=== PATIENT | female | born 1955 | race Caucasian/White ===

== ENCOUNTER 2023-08-11 11:21 | Emergency (ER) | payer MEDICARE, BC ==
[2023-08-11 11:36] VITALS: BP 149/87; O2SAT 100
--- NOTE | 2023-08-11 11:50 | ED Physician Documentation ---
History of Present Illness - Stated complaint Stated Complaint: COUGH,ACHEY - Chief complaint Chief Complaint: Resp - History obtained from History obtained from: Patient - Additonal information Additional information: She has been sick for 4 days with a productive cough and bodyaches. She went to the clinic yesterday and had negative viral testing. She is been taking leftover doxycycline from some other illness for the last 3 days but only once a day. She received a prescription for Tessalon and codeine yesterday, but she does not like to take medicines. Review of Systems Constitutional: reports: Chills, Myalgias. denies: Fever PD PAST MEDICAL HISTORY - Past Medical History Past Medical History: No Cardiovascular: MO - Past Surgical History Past Surgical History: No - Present Medications Home Medications: Ambulatory Orders Medication Instructions Recorded Confirmed Albuterol Sulf [Ventolin Hfa 1 - 2 puffs INH Q4HR PRN #1 each 08/11/23 Inhaler] Benzonatate 200 mg PO TID 08/11/23 08/11/23 Codeine Phosphate/Guaifenesin 10 ml PO DAILY 08/11/23 08/11/23 [Codeine-Guaifen 10-100 mg/5 ml] - Allergies Allergies/Adverse Reactions: Allergies Allergy/AdvReac Type Severity Reaction Status Date / Time No Known Drug Allergies Allergy Verified 08/11/23 11:35 - Social History Does the pt smoke?: Yes Smoking Status: Former smoker Does the pt drink ETOH?: No Does the pt have substance abuse?: No PD ED PE NORMAL - Vitals Vital signs reviewed: Yes - General General: Alert and oriented X 3, No acute distress - HEENT HEENT: Pharynx benign - Cardiac Cardiac: RRR, No murmur - Respiratory Respiratory: No respiratory distress, Other (Rhonchi and wheezing throughout, nonlabored) - Extremities Extremities: No edema, No calf tenderness / cord - Neuro Neuro: Alert and oriented X 3, Normal speech Results - Vitals Vitals: Vital Signs - 24 hr 08/11/23 11:28 Temperature 36.7 C Heart Rate 100 Respiratory 18 Rate Blood Pressure 149/87 H O2 Saturation 100 Oxygen O2 Source Room air - Labs Labs: Laboratory Tests 08/11/23 11:41 Nasal Adenovirus (PCR) NOT DETECTED Nasal B. parapertussis DNA (PCR) NOT DETECTED Nasal Coronavir 229E PCR NOT DETECTED Nasal Coronavir HKU1 PCR NOT DETECTED Nasal Coronavir NL63 PCR NOT DETECTED Nasal Coronavir OC43 PCR NOT DETECTED Nasal Enterovir/Rhinovir PCR NOT DETECTED Nasal Influenza B PCR NOT DETECTED Nasal Influenza A PCR NOT DETECTED Nasal Parainfluen 1 PCR NOT DETECTED Nasal Parainfluen 2 PCR NOT DETECTED Nasal Parainfluen 3 PCR NOT DETECTED Nasal Parainfluen 4 PCR NOT DETECTED Nasal RSV (PCR) NOT DETECTED Nasal B.pertussis DNA PCR NOT DETECTED Nasal C.pneumoniae (PCR) NOT DETECTED Eb Human Metapneumo PCR DETECTED A Nasal M.pneumoniae (PCR) NOT DETECTED Nasal SARS-CoV-2 (PCR) NOT DETECTED - Rads (name of study) 2 view chest x-ray showing perihilar peribronchial thickening Relevant Findings:: Final report received, EMP independent interpretation of test PD Medical Decision Making - ED course ED course: She presents with overall what sounds like a viral syndrome. She appears well. She has prescriptions for codeine and Tessalon but has not been taking them. Her chest x-ray shows no pneumonia. I encouraged her to take the codeine and Tessalon we will add albuterol. I discussed with her that I see no role for antibiotics for this likely viral syndrome. [employer] respiratory panel resulted after discharge, positive for human metapneumovirus. Departure - Departure Disposition: 01 Home, Self Care Clinical Impression: Acute viral bronchiolitis Condition: Good Record reviewed to determine appropriate education?: Yes Instructions: ED Viral Syndrome Prescriptions: Albuterol Sulf [Ventolin Hfa Inhaler] 1 - 2 puffs INH Q4HR PRN #1 each PRN Reason: Shortness Of Air/Wheezing Comments: Your chest x-ray shows no sign of pneumonia. As discussed I see no role for antibiotics for this illness. I did send a prescription for an inhaler that I think may be helpful to the [facility] in [place]. You I also encourage you to use the codeine and benzonatate that you were prescribed yesterday. Return if worse. Follow-up with your primary care physician if not better in a week or so. Forms: PCP List Discharge Date/Time: 08/11/23 12:51
--- NOTE | 2023-08-11 12:20 | XRAY Report ---
PROCEDURE: Chest 2V INDICATIONS: cough TECHNIQUE: 2 views of the chest were acquired. COMPARISON: None. FINDINGS: Surgical changes and devices: None. Lungs and pleura: No pleural effusions or pneumothorax. Lungs are clear. Peribronchial cuffing. Mediastinum: Mediastinal contours appear normal. Heart size is normal. Bones and chest wall: No suspicious bony lesions. Overlying soft tissues appear unremarkable. IMPRESSION: Peribronchial cuffing, suggestive of infectious or inflammatory bronchitis. Reviewed by: Clyde oHff MD on 08/11/2023 12:18 PM PDT Approved by: Clyde Hoff MD on 08/11/2023 12:18 PM PDT Station ID: [id number]
[2023-08-11 12:51] LABS: B. PARAPERTUSSIS- RESP PCR PAN NOT DETECTED; B. PERTUSSIS- RESP PCR PANEL NOT DETECTED; C. PNEUMONIAE- RESP PCR PANEL NOT DETECTED; CORONAVIRUS 229E-RESP PCR NOT DETECTED; CORONAVIRUS HKU1-RESP PCR NOT DETECTED; CORONAVIRUS NL63-RESP PCR NOT DETECTED; CORONAVIRUS OC43-RESP PCR NOT DETECTED; HUMAN METAPNEUMOVIRUS DETECTED; INFLUENZA A- RESP PCR PANEL NOT DETECTED; INFLUENZA B - RESP PCR PANEL NOT DETECTED; M. PNEUMONIAE- RESP PCR PANEL NOT DETECTED; PARAINFLUENZA VIRUS 1 NOT DETECTED; PARAINFLUENZA VIRUS 2 NOT DETECTED; PARAINFLUENZA VIRUS 3 NOT DETECTED; PARAINFLUENZA VIRUS 4 NOT DETECTED; RHINOVIRUS/ENTEROVIRUS NOT DETECTED; RSV- RESP PCR PANEL NOT DETECTED; SARS-CoV-2 -RESP PCR PANEL NOT DETECTED
== END 2023-08-11 12:51 | disposition home or self-care (01) ==
LOC: ED 11:21
DX: J21.1 Acute bronchiolitis due to human metapneumovirus (principal); Z91.148 Patient's other noncompliance with medication regimen for other reason; Z87.891 Personal history of nicotine dependence
CPT/HCPCS: 87633; 99284